=== PATIENT | female | born 1990 | race Caucasian/White ===

== ENCOUNTER 2021-12-01 11:23 | Emergency (ER) | payer MEDICARE, MEDICAID, SELFPAY ==
[2021-12-01 11:30] VITALS: BP 130/87; PULSE 75; RESP 14; TEMP 36.8; O2SAT 100
--- NOTE | 2021-12-01 11:52 | W.ED.GENAD ---
Discharge Plan Disposition Patient Disposition: HOME Discharge Details Clinical Impression: Vaginal bleeding Primary Care Provider: None,None ED Provider: Chino Wild Home Meds and New Rx's Prescriptions: No Action gabapentin 100 mg Capsule 100 mg PO BID PRN methylphenidate HCl [Ritalin] 20 mg Tablet 40 mg PO DAILY Discharge Instructions Additional Instructions: Please follow-up with your [employer] this week. Please take ibuprofen 400 mg every 6 hours for cramping. You have tests that have not resulted. Your S[employer] OPERATOR will be able to give results of these tests Medical Decision Making Patient with ongoing cramping and vaginal bleeding since her Depo-Provera shot several weeks ago. Patient has been following with her [employer]PER[employer] but missed her last appointment. Since then she has had 3 negative test including today's. She is very concerned that she could have been again. CBC and electrolytes within normal limits. UA does not show any signs of infection. Given her concern for STIs, GC chlamydia and RPR were sent. She is aware that the stents will not result today and that she will have to follow-up with her PCP for the results. We talked about empiric therapy is needed it was decided that she will wait for the test to result. HPI General Date/Time Provider Initiated Documentation: 12/01/21 11:52. HPI Narrative: 30-year-old presents to the emergency room for evaluation of persistent vaginal bleeding. Her child is 4 months, at the 6-week post delivery visit she states that she was given a deep Depo-Provera shot. At the same time apparently she was given Plan B because she has had unprotected intercourse 4 days prior to the visit.. Shortly after getting the Depo-Provera shot she developed some cramping and vaginal bleeding. It has been persistent since then. On Friday the she called her doctor stating that she was still bleeding. She was told to get a test. This was negative. She was told to follow-up on Friday however she was too busy to follow-up therefore she is here in the emergency department today. She is also concerned that she may have an STD because she had unprotected intercourse with her partner and she does not trust it. She has no vaginal discharge. No fevers no chills. No rashes. Related Data Home Medications Medication Instructions Recorded Confirmed gabapentin 100 mg capsule 100 mg PO BID PRN 12/01/21 12/01/21 methylphenidate HCl 20 mg tablet 40 mg PO DAILY 12/01/21 12/01/21 (Ritalin) Allergies Allergy/AdvReac Type Severity Reaction Status Date / Time No Known Allergies Allergy Unverified 12/01/21 11:36 General Stated Complaint: [employer] MIGUEL ANGEL: 3 Review of Systems Narrative: Constitutional is been negative for fever chills, negative for malaise, negative for fatigue. Eyes: No visual changes, no tearing ENT: No sore throat Cardiovascular no chest pain, no shortness of breath with exertion, no palpitations, no lightheadedness Respiratory: No shortness of breath, no cough, GI: No abdominal pain, diarrhea x 2, no nausea, no vomiting, no dark stools : No dysuria, no frequency, no hematuria MSK: No myalgias, no arthralgias Skin: No rash Neurological: No headaches Psych: pos anxiety Endo: No weight gain no weight loss Hematology/lymph: no easy bleeding, not on blood thinners PFSH All Active Problems (Updated 12/01/21 @ 13:16 by Chino Wild MD) Vaginal bleeding (Acute) Social History Smoking risk assessment performed?: No Do you feel safe at home: Yes Do you feel safe in your relationship?: Yes Exam Narrative Exam Narrative: General: A,A Ox3, Calm, no apparent distress, well developed, pleasant and cooperative Head Size/Shape: normocephalic, atraumatic Eyes Pupils: PERRLA Extraocular Mobility: intact and symmetrical Conjunctiva: non-injected, anicteric, no discharge Ears, Nose, Throat Nares: patent bilaterally Oral Cavity: moist Respiratory Respiratory Effort: no dyspnea CTAB Cardiovascular Heart Auscultation: regular rate and rhythm, normal S1, normal S2, no murmurs, no rubs, no gallops, Pulse Quality: +2 equal bilaterally, location(s) radial Abdomen Inspection and Palpation: soft, non-tender, non-distended, no hepatosplenomegaly Musculoskeletal System Joints, Bones, and Muscles: no deformities Extremities: warm and well-perfused, no cyanosis, capillary refill <2 seconds Skin Skin Inspection: no rash, no lesions, no bruising Neurological Motor: normal tone, normal strength, moving all extremities equally Psychiatric: good insight, good judgement, normal mood and affect Course Vital Signs Vital signs: Vital Signs Temperature 36.8 C 12/01/21 11:30 Pulse 75 12/01/21 11:30 Respiratory Rate 14 12/01/21 11:30 Blood Pressure 130/87 12/01/21 11:30 Pulse Oximetry 100 12/01/21 11:30 Temperature 36.8 C 12/01/21 11:30 Temperature Source Skin 12/01/21 11:30 Pulse 75 12/01/21 11:30 Respiratory Rate 14 12/01/21 11:30 Respiratory Effort 12/01/21 11:39 Blood Pressure 130/87 12/01/21 11:30 Blood Pressure Position Sitting 12/01/21 11:30 Pulse Oximetry 100 12/01/21 11:30 Oxygen Delivery Method Room Air 12/01/21 11:30 Oxygen Flow Rate 0 12/01/21 11:30 Pain Level 8 12/01/21 11:38
[2021-12-01 12:12] LABS: Bilirubin Negative (Negative); Blood Moderate (Negative); Clarity Clear (Clear); Glucose Negative (Negative); Ketones Negative (Negative); Leukocyte Esterase Negative (Negative); Nitrite Negative (Negative); Specific Gravity >= 1.030 (1.005-1.025); Urobilinogen 0.2 EU/dL (Up TO 0.2)
[2021-12-01 12:17] LABS: Bacteria Negative HPF (Negative); Crystals Negative HPF (Negative); Epithelial Cells Few HPF (Negative); Mucus Moderate (Negative); WBC Negative HPF (0-5)
[2021-12-01 12:18] LABS: C & S Indicated? No; Casts 3-5 Hyaline LPF (Negative)
[2021-12-01 12:39] LABS: Abs Immature Grans 0.02 10^3/uL (0.0-0.06); Absolute Basophil Count 0.05 10^3/uL (0.0-0.2); Absolute Eosinophil Count 0.17 10^3/uL (0.0-0.7); Absolute Lymphocyte Count 3.77 10^3/uL (1.2-3.4); Absolute Monocyte Count 0.68 10^3/uL (0.1-0.8); Absolute Neutrophil Count 5.31 10^3/uL (1.2-6.7); Basophils % 0.5; Eosinophils % 1.7; HGB 12.5 g/dL (11.2-15.7); Immature Grans % 0.2; Lymphocytes % 37.7; MCHC 32.9 % (32.0-36.0); MCV 91 fL (80-95); MPV 9.5 fL (8.0-11.0); Monocytes % 6.8; Neutrophils % 53.1; Platelet Count 452 10^3/uL (130-400); RBC 4.17 10^6/uL (3.93-5.22); RDW 13.1 % (11.7-14.6); RDW-SD 43.8 fL
[2021-12-01 12:47] LABS: Anion Gap 8.9 mmol/L (3-11); BUN 14 mg/dL (7-18); CO2 25.1 mmol/L (21.0-32.0); CREATININE 0.7 mg/dL (0.55-1.02); Calcium 9.5 mg/dL (8.5-10.1); Chloride 104 mmol/L (98-107); Estimated GFR 120.74 (mL/min/1.73m2); Glucose 90 mg/dL (74-106); Potassium 3.9 mmol/L (3.5-5.1); Sodium 138 mmol/L (136-145)
[2021-12-01] MEDS: Ketorolac 30 MG/ML VIAL IM (12:55)
--- NOTE | 2021-12-01 13:34 | NUR.NOTE ---
Nursing Note: Discharge instructions mailed to pt.
--- NOTE | 2021-12-03 09:54 | NUR.NOTE ---
Nursing Note: Patient called asking about results. Particularly regarding the urine result. Note given to provider to call patient back.
[2021-12-03 11:14] LABS: Syphilis Serology (RPR) Negative (Negative)
[2021-12-03 15:24] LABS: Chlamydia Result Negative (Negative); GC Result Negative (Negative)
== END 2021-12-01 13:24 | disposition home or self-care (01) ==
PROVIDERS: Emergency Provider Emergency Medicine
DX: N93.9 Abnormal uterine and vaginal bleeding, unspecified (principal); R10.2 Pelvic and perineal pain
CPT/HCPCS: 80048; 81025; 87491; 87591; 96372; 99284; 81003; 81015; 85025; 86592; J1885